=== PATIENT | male | born 1980 | race Caucasian/White ===

== ENCOUNTER 2017-07-28 08:49 | Emergency (ER) | payer OTHER ==
[2017-07-28] MEDS: ONDANSETRON (ODT) 4 MG TAB ODT (09:18)
[2017-07-28] MEDS: ACETAMINOPHEN 500 MG TAB PO (09:18)
== END 2017-07-28 11:44 | disposition home or self-care (01) ==
LOC: FTE 08:49
DX: S09.90XA Unspecified injury of head, initial encounter (principal); R11.0 Nausea; R51 Headache; S00.81XA Abrasion of other part of head, initial encounter; W22.8XXA Striking against or struck by other objects, initial encounter; Y92.89 Other specified places as the place of occurrence of the external cause
CPT/HCPCS: 70450; 70480; 99285-25